=== PATIENT | male | born 2000 | race Caucasian/White ===

== ENCOUNTER 2023-01-14 23:34 | Emergency (ER) | payer OTHER, SELFPAY ==
--- NOTE | ~2023-01-14 | XR_ITS ---
EXAMINATION: XR finger 1st LT min 2V DATE: 01/15/2023 00:27 INDICATION: Left hand second digit laceration. TECHNIQUE: 3 views of left hand second digit were obtained. COMPARISON: None. FINDINGS: Bone alignment is normal. No fracture. Joint spaces are normal. No radiopaque foreign body. IMPRESSION: 1. No fracture or radiopaque foreign body. Reviewed, dictated and finalized at location E.
[2023-01-14 23:39] VITALS: BP 130/97; PULSE 80; RESP 19; TEMP 36.2; O2SAT 100
--- NOTE | 2023-01-15 01:10 | PC.NURSE ---
Patient comes to desk to inform this nurse that he is leaving. This RN informed him of risks of leaving before being seen by a provider and benefits of staying. Patient states I'm just gonna leave, I have to be at work in a few hours so I'm going to leave. Patient ambulated out of the ED with a steady gait with belongings in hand.
== END 2023-01-15 01:19 | disposition left against medical advice (07) ==
LOC: ANHED 01-15 01:16
PROVIDERS: Emergency Provider Physician Assistant; PCP Pediatrics
DX: S61.211A Laceration without foreign body of left index finger without damage to nail, initial encounter (principal); W25.XXXA Contact with sharp glass, initial encounter
CPT/HCPCS: 73140; 99199